=== PATIENT | female | born 1995 | race African-American/Black ===

== ENCOUNTER 2019-12-22 23:25 | Emergency (ER) | payer MEDICAID ==
[~2019-12-22] VITALS: Ht 170.2 cm; Wt 73.5 kg
[2019-12-23 01:48] LABS: CHLORIDE 107 mEq/L (98-107)
[2019-12-23 02:04] LABS: HCG SCREEN NEGATIVE
[2019-12-23 02:22] LABS: CLARITY URINE CLOUDY (CLEAR); COLOR URINE YELLOW (YELLOW); KETONES URINE 1+ (NEGATIVE); LEUKOCYTE ESTERASE URINE 1+ (NEGATIVE); NITRITE URINE NEGATIVE (NEGATIVE); OCCULT BLOOD URINE 3+ (NEGATIVE); PH URINE 5.5 (4.5-8.0); PROTEIN URINE 1+ (NEGATIVE); SPECIFIC GRAVITY URINE 1.031 (1.005-1.030)
[2019-12-23] MEDS ORDERED: KETOROLAC 15MG/ML VIAL IV ONE (02:30)
[2019-12-23 02:36] LABS: PARTIAL THROMBOPLASTIN TIME 24.6 sec (23.4-31.0); PROTHROMBIN TIME 10.4 sec (9.6-11.0)
[2019-12-23 02:47] LABS: HEMATOCRIT 41.9 % (36.0-48.0); HEMOGLOBIN 14.5 g/dL (12.0-16.0); MEAN CORPUSCULAR HEMOGLOBIN 31.4 pg (28.0-32.0); MEAN CORPUSCULAR VOLUME 90.8 fL (81.0-99.0); PLATELET 233 x1000/uL (130-400); RED BLOOD CELL COUNT 4.62 mill/uL (4.2-5.4); RED CELL DISTRIBUTION WIDTH 12.2 % (11.6-14.6)
[2019-12-23 03:50] VITALS: BP 116/74
== END 2019-12-23 03:53 | disposition home or self-care (01) ==
LOC: ER 23:25
DX: M79.18 Myalgia, other site (principal); J04.0 Acute laryngitis; F12.10 Cannabis abuse, uncomplicated; I49.9 Cardiac arrhythmia, unspecified; Z91.013 Allergy to seafood; Z91.010 Allergy to peanuts
CPT/HCPCS: 36415; 70450; 71045; 72125; 80053; 81003; 83690; 84703; 85027; 85610; 85730; 86850; 86900; 86901; 93005; 96374; 99285; J1885

== ENCOUNTER 2023-01-02 18:19 | Emergency (ER) | payer MEDICAID, OTHER ==
[~2023-01-02] VITALS: Ht 170.2 cm; Wt 68.0 kg
[2023-01-02 18:22] VITALS: BP 130/77; O2SAT 100
[2023-01-02 20:03] LABS: CLARITY URINE CLEAR (CLEAR); COLOR URINE YELLOW (YELLOW); GLUCOSE URINE NEGATIVE (NEGATIVE); KETONES URINE NEGATIVE (NEGATIVE); LEUKOCYTE ESTERASE URINE NEGATIVE (NEGATIVE); NITRITE URINE NEGATIVE (NEGATIVE); OCCULT BLOOD URINE NEGATIVE (NEGATIVE); PROTEIN URINE NEGATIVE (NEGATIVE); SPECIFIC GRAVITY URINE 1.009 (1.005-1.030); UROBILINOGEN URINE 0.2 E.U./dL (0.2-1.0)
[2023-01-02 20:55] VITALS: PULSE 80; RESP 16; TEMP 98.9
[2023-01-06 04:11] LABS: CHLAMYDIA TRACHOMATIS NAA Negative (Negative); NEISSERIA GONORRHOEAE NAA Negative (Negative)
== END 2023-01-02 20:58 | disposition home or self-care (01) ==
LOC: ER 18:19
DX: R10.2 Pelvic and perineal pain (principal); F12.10 Cannabis abuse, uncomplicated
CPT/HCPCS: 81003; 81025; 87210; 87491; 87591; 99283